=== PATIENT | male | born 2000 | race Caucasian/White ===

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

== ENCOUNTER 2021-01-21 11:09 | Outpatient (CLI) | payer OTHER ==
[~2021-01-21] VITALS: Ht 172.7 cm; Wt 69.0 kg
[2021-01-21 11:42] LABS: BASO # 0.1 K/mm3 (0.0-0.2); BASO % 0.6 % (0.0-2.0); EOS # 0.1 K/mm3 (0.0-0.7); EOS % 1.2 % (0-4.0); GRAN # 5.1 K/mm3 (1.4-6.5); HEMATOCRIT 42.1 % (36.0-47.0); HEMOGLOBIN 14.4 g/dl (12.5-16.1); LYMPH # 2.9 K/mm3 (1.2-3.4); LYMPH % 32.8 % (20.0-51.0); MEAN CELL VOLUME 91 fl (80.0-95.0); MEAN CORPUSCULAR HEMOGLOBIN 31 pg (26.0-32.0); MEAN CORPUSCULAR HGB CONC 34 g/dl (33.0-37.0); MEAN PLATELET VOLUME 9.9 fl (7.4-10.4); MONO # 0.7 K/mm3 (0.1-0.6); MONO % 8.2 % (1.7-9.3); PLATELET COUNT 255 K/mm3 (130-400); RED BLOOD COUNT 4.62 M/mm3 (4.20-5.60); REDCELL DISTRIBUTION WIDTH-CV 11.8 % (11.5-14.5)
[2021-01-21 13:15] VITALS: BP 131/72; PULSE 63; TEMP 98.8
[2021-01-21 13:45] VITALS: BP 129/65; PULSE 58
[2021-01-21 14:15] VITALS: BP 135/66; PULSE 52
[2021-01-21 14:30] VITALS: BP 141/62; PULSE 53
[2021-01-21 15:13] VITALS: BP 126/60; PULSE 60
== END 2021-01-21 15:14 ==
LOC: EUO 11:09
PROVIDERS: Internal Medicine Gastroenterology
DX: K50.90 Crohn's disease, unspecified, without complications (principal)
CPT/HCPCS: J1745; J7050

== ENCOUNTER 2021-03-18 15:33 | Outpatient (CLI) | payer SELFPAY ==
[~2021-03-18] VITALS: Ht 172.7 cm; Wt 64.5 kg
[2021-03-18 16:01] LABS: BASO # 0.1 K/mm3 (0.0-0.2); BASO % 0.6 % (0.0-2.0); EOS # 0.2 K/mm3 (0.0-0.7); EOS % 1.7 % (0.0-4.0); GRAN % 62.2 % (42.2-75.2); HEMATOCRIT 43.4 % (36.0-47.0); HEMOGLOBIN 14.8 g/dl (12.5-16.1); LYMPH # 2.7 K/mm3 (1.2-3.4); LYMPH % 28.1 % (20.0-51.0); MEAN CELL VOLUME 92 fl (80.0-95.0); MEAN CORPUSCULAR HEMOGLOBIN 31 pg (26-32); MEAN CORPUSCULAR HGB CONC 34 g/dl (33.0-37.0); MEAN PLATELET VOLUME 9.8 fl (7.4-10.4); MONO # 0.7 K/mm3 (0.1-0.6); MONO % 7.2 % (1.7-9.3); PLATELET COUNT 268 K/mm3 (130-400); RED BLOOD COUNT 4.74 M/mm3 (4.20-5.60); REDCELL DISTRIBUTION WIDTH-CV 11.8 % (11.5-14.5)
[2021-03-18 16:19] LABS: ALBUMIN 4.6 gm/dL (3.5-5.0); BILIRUBIN,TOTAL 0.7 mg/dL (0.2-1.2); CALCIUM 9.3 mg/dL (8.4-10.2); CREATININE, serum 0.9 mg/dL (0.72-1.25); POTASSIUM 4.2 mmol/L (3.5-4.5); TOTAL PROTEIN 7.4 gm/dL (6.2-8.1)
[2021-03-18 16:45] VITALS: BP 125/71; PULSE 85; TEMP 98
[2021-03-18 17:15] VITALS: BP 118/74; PULSE 64
[2021-03-18 17:45] VITALS: BP 105/56; PULSE 66
[2021-03-18 18:15] VITALS: BP 122/74; PULSE 68
[2021-03-18 18:45] VITALS: BP 124/70; PULSE 68
[2021-03-18 19:10] VITALS: BP 118/70; PULSE 71
== END 2021-03-19 15:34 ==
LOC: EUO 15:33
PROVIDERS: Internal Medicine Gastroenterology
DX: K50.90 Crohn's disease, unspecified, without complications (principal)
CPT/HCPCS: J1745; J7050

== ENCOUNTER 2021-05-19 15:06 | Outpatient (CLI) | payer SELFPAY ==
[2021-05-19] VITALS (8 sets, daily range): BP systolic 96–147; BP diastolic 54–90; PULSE 16–81; TEMP 98.3–98.6
[~2021-05-19] VITALS: Ht 172.7 cm; Wt 66.5 kg
[2021-05-19 15:33] LABS: BASO # 0.1 K/mm3 (0.0-0.2); BASO % 0.7 % (0.0-2.0); EOS # 0.1 K/mm3 (0.0-0.7); EOS % 1.6 % (0.0-4.0); GRAN # 5.3 K/mm3 (1.4-6.5); HEMATOCRIT 44.4 % (36.0-47.0); HEMOGLOBIN 15.1 g/dl (12.5-16.1); LYMPH # 2.9 K/mm3 (1.2-3.4); LYMPH % 32.1 % (20.0-51.0); MEAN CELL VOLUME 91 fl (80.0-95.0); MEAN CORPUSCULAR HEMOGLOBIN 31 pg (26-32); MEAN CORPUSCULAR HGB CONC 34 g/dl (33.0-37.0); MEAN PLATELET VOLUME 9.8 fl (7.4-10.4); MONO # 0.6 K/mm3 (0.1-0.6); MONO % 6.4 % (1.7-9.3); PLATELET COUNT 292 K/mm3 (130-400); RED BLOOD COUNT 4.86 M/mm3 (4.20-5.60)
== END 2021-05-19 18:46 ==
LOC: EUO 15:06
PROVIDERS: Internal Medicine Gastroenterology
DX: K50.90 Crohn's disease, unspecified, without complications (principal)
CPT/HCPCS: J1745; J7050

== ENCOUNTER 2021-07-07 14:28 | Outpatient (CLI) | payer SELFPAY ==
[~2021-07-07] VITALS: Ht 172.7 cm; Wt 67.7 kg
[2021-07-07 14:42] LABS: BASO % 0.5 % (0.0-2.0); EOS # 0.1 K/mm3 (0.0-0.7); EOS % 1.5 % (0.0-4.0); GRAN # 4.6 K/mm3 (1.4-6.5); GRAN % 56.6 % (42.2-75.2); HEMATOCRIT 41.3 % (36.0-47.0); HEMOGLOBIN 14.3 g/dl (12.5-16.1); LYMPH # 2.8 K/mm3 (1.2-3.4); LYMPH % 34.4 % (20.0-51.0); MEAN CELL VOLUME 90 fl (80.0-95.0); MEAN CORPUSCULAR HEMOGLOBIN 31 pg (26-32); MEAN CORPUSCULAR HGB CONC 35 g/dl (33.0-37.0); MONO # 0.6 K/mm3 (0.1-0.6); MONO % 6.8 % (1.7-9.3); PLATELET COUNT 241 K/mm3 (130-400); REDCELL DISTRIBUTION WIDTH-CV 11.9 % (11.5-14.5)
[2021-07-07 15:05] VITALS: BP 119/70; PULSE 66; TEMP 99
[2021-07-07 15:30] VITALS: BP 120/64; PULSE 58
[2021-07-07 16:00] VITALS: BP 137/77; PULSE 67
[2021-07-07 16:30] VITALS: BP 124/78; PULSE 60
[2021-07-07 16:51] VITALS: BP 122/86; PULSE 65
== END 2021-07-07 18:00 ==
LOC: EUO 14:28
PROVIDERS: Internal Medicine Gastroenterology
DX: K50.90 Crohn's disease, unspecified, without complications (principal)
CPT/HCPCS: J1745; J7050

== ENCOUNTER 2021-09-02 13:43 | Outpatient (CLI) | payer SELFPAY ==
[~2021-09-02] VITALS: Ht 172.7 cm; Wt 68.7 kg
[2021-09-02 14:02] LABS: BASO % 0.5 % (0.0-2.0); EOS # 0.1 K/mm3 (0.0-0.7); EOS % 1.6 % (0.0-4.0); GRAN # 3.8 K/mm3 (1.4-6.5); GRAN % 49.6 % (42.2-75.2); HEMATOCRIT 44.7 % (36.0-47.0); LYMPH # 2.9 K/mm3 (1.2-3.4); MEAN CELL VOLUME 93 fl (80.0-95.0); MEAN CORPUSCULAR HEMOGLOBIN 31 pg (26-32); MEAN CORPUSCULAR HGB CONC 34 g/dl (33.0-37.0); MEAN PLATELET VOLUME 10.2 fl (7.4-10.4); MONO # 0.8 K/mm3 (0.1-0.6); PLATELET COUNT 207 K/mm3 (130-400); RED BLOOD COUNT 4.79 M/mm3 (4.20-5.60)
[2021-09-02 15:38] VITALS: BP 110/57; PULSE 59; TEMP 98.6
[2021-09-02 16:00] VITALS: BP 109/58; PULSE 62
[2021-09-02 16:30] VITALS: BP 111/56; PULSE 62
[2021-09-02 17:00] VITALS: BP 113/58; PULSE 61
[2021-09-02 17:30] VITALS: BP 115/79; PULSE 59
== END 2021-09-02 18:21 | disposition home or self-care (01) ==
LOC: EUO 13:43
PROVIDERS: Internal Medicine Gastroenterology
DX: K50.90 Crohn's disease, unspecified, without complications (principal)
CPT/HCPCS: J1745; J7050

== ENCOUNTER → 2021-10-23 | Outpatient (CLI) | payer SELFPAY ==
[~2021-10-23] VITALS: Ht 172.7 cm; Wt 67.1 kg
[2021-10-23 15:21] LABS: BASO % 0.5 % (0.0-2.0); EOS # 0.1 K/mm3 (0.0-0.7); EOS % 1.5 % (0.0-4.0); GRAN # 5.1 K/mm3 (1.4-6.5); GRAN % 58.5 % (42.2-75.2); HEMATOCRIT 42.1 % (36.0-47.0); HEMOGLOBIN 14.7 g/dl (12.5-16.1); LYMPH # 2.8 K/mm3 (1.2-3.4); LYMPH % 32.1 % (20.0-51.0); MEAN CELL VOLUME 90 fl (80.0-95.0); MEAN CORPUSCULAR HEMOGLOBIN 31 pg (26-32); MEAN CORPUSCULAR HGB CONC 35 g/dl (33.0-37.0); MEAN PLATELET VOLUME 10.2 fl (7.4-10.4); MONO # 0.6 K/mm3 (0.1-0.6); MONO % 7.2 % (1.7-9.3); PLATELET COUNT 244 K/mm3 (130-400); REDCELL DISTRIBUTION WIDTH-CV 11.8 % (11.5-14.5)
[2021-10-23 16:02] VITALS: BP 117/60; PULSE 74; TEMP 98.1
[2021-10-23 16:30] VITALS: BP 110/57; PULSE 65
[2021-10-23 17:00] VITALS: BP 111/55; PULSE 63
[2021-10-23 17:30] VITALS: BP 110/52; PULSE 59
== END ==
LOC: EUO 15:00
PROVIDERS: Internal Medicine Gastroenterology
DX: K50.90 Crohn's disease, unspecified, without complications (principal)
CPT/HCPCS: J1745; J7050

== ENCOUNTER 2021-12-21 11:13 | Outpatient (CLI) | payer SELFPAY ==
[~2021-12-21] VITALS: Ht 172.7 cm; Wt 72.8 kg
[2021-12-21 11:42] LABS: BASO % 0.6 % (0.0-2.0); EOS # 0.1 K/mm3 (0.0-0.7); EOS % 1.9 % (0.0-4.0); GRAN # 3.6 K/mm3 (1.4-6.5); GRAN % 52.8 % (42.2-75.2); HEMATOCRIT 44.4 % (36.0-47.0); HEMOGLOBIN 14.9 g/dl (12.5-16.1); LYMPH # 2.5 K/mm3 (1.2-3.4); MEAN CELL VOLUME 95 fl (80.0-95.0); MEAN CORPUSCULAR HEMOGLOBIN 32 pg (26-32); MEAN CORPUSCULAR HGB CONC 34 g/dl (33.0-37.0); MEAN PLATELET VOLUME 9.8 fl (7.4-10.4); MONO # 0.6 K/mm3 (0.1-0.6); MONO % 8.6 % (1.7-9.3); PLATELET COUNT 242 K/mm3 (130-400); RED BLOOD COUNT 4.66 M/mm3 (4.20-5.60); REDCELL DISTRIBUTION WIDTH-CV 11.9 % (11.5-14.5)
[2021-12-21 11:57] VITALS: BP 99/49; PULSE 57; TEMP 98.8
[2021-12-21 12:37] VITALS: BP 116/59; PULSE 62
[2021-12-21 13:07] VITALS: BP 112/62; PULSE 56
[2021-12-21 13:37] VITALS: BP 121/57; PULSE 60; TEMP 97.1
[2021-12-21 14:07] VITALS: BP 122/60; PULSE 55
[2021-12-21 14:30] VITALS: BP 130/73; PULSE 68
--- NOTE | 2021-12-21 14:36 | NUR ---
Message left at Dr Dunn's office requesting updated order. Pt is aware of this and possible need for appt with Dr Dunn's office. Pharmacy also used 4 of the 6 vials available in pharmacy, so additional vials will be needed for next infusion, and pt is aware as [facility] provides his med. IV site wrapped in coban. Pt exits dept with steady gait.
== END 2021-12-21 14:42 | disposition home or self-care (01) ==
LOC: EUO 11:13
PROVIDERS: Internal Medicine Gastroenterology
DX: K50.90 Crohn's disease, unspecified, without complications (principal)
CPT/HCPCS: J1745; J7050